=== PATIENT | female | born 1970 | race Two or more races ===

== ENCOUNTER 2022-11-13 09:03 | Outpatient (CLI) | payer OTHER | END 2022-11-13 23:59 | disposition home or self-care (01) | LOC: LAB 09:03 | PROVIDERS: ATTEND Orthopaedic Surgery | DX: Z01.818 Encounter for other preprocedural examination (principal) ==

== ENCOUNTER 2022-11-20 09:06 | Outpatient (CLI) | payer OTHER | END 2022-11-20 23:59 | disposition home or self-care (01) | LOC: LAB 09:06 | PROVIDERS: ATTEND Orthopaedic Surgery | DX: Z01.812 Encounter for preprocedural laboratory examination (principal); Z20.822 Contact with and (suspected) exposure to COVID-19 ==

== ENCOUNTER 2022-11-20 10:15 | Outpatient (CLI) | payer OTHER ==
[2022-11-20 11:02] LABS: *BILIRUBIN,URIN NEGATIVE (NEGATIVE); *BLOOD, URINE 1+ (NEGATIVE); *CLARITY,URINE CLEAR (CLEAR); *COLOR,URINE YELLOW (YELLOW); *KETONES,URINE NEGATIVE (NEGATIVE); *UROBILINOGEN,URINE 0.2 E.U./dl (NORMAL); LEUKOCYTE ESTERASE ,URINE NEGATIVE (NEGATIVE); NITRITE, URINE NEGATIVE (NEGATIVE); PH,URINE 5.5 (5.0-8.0); UGLUCOSE NEGATIVE (NEGATIVE)
[2022-11-20 11:04] LABS: HEMATOCRIT 40.8 % (31.2-41.9); MEAN CORPUSCULAR HEMOGLOBIN 29.6 uug (24.7-32.8); MEAN CORPUSCULAR VOLUME 87.7 fL (75.5-95.3); PLATELET COUNT (AUTO) 239 K/uL (179-408)
[2022-11-20 16:05] LABS: CREATININE 0.9 mg/dL (0.6-1.3); POTASSIUM 3.3 mmol/L (3.5-5.1)
[2022-11-20 16:06] LABS: BILIRUBIN,TOTAL 0.5 mg/dL (0.2-1.0); TOTAL PROTEIN, SERUM 7.9 g/dL (6.4-8.2)
[2022-11-20 17:36] LABS: BACTERIA,URINE FEW /HPF (NONE SEEN); SQUAMOUS EPITHELIAL CELL,UR FEW /HPF (NONE SEEN); WBC,URINE 0-3 /HPF (0-3)
== END 2022-11-20 23:59 | disposition home or self-care (01) ==
LOC: LAB 10:15
PROVIDERS: ATTEND Internal Medicine
DX: Z01.818 Encounter for other preprocedural examination (principal); S83.8X1A Sprain of other specified parts of right knee, initial encounter; D64.9 Anemia, unspecified; X58.XXXA Exposure to other specified factors, initial encounter; Y93.89 Activity, other specified; Y92.89 Other specified places as the place of occurrence of the external cause; Y99.8 Other external cause status
CPT/HCPCS: 36415; 71045; 85025; 85730; 93005; A4663

== ENCOUNTER 2022-11-22 08:33 | Day surgery (SDC) | payer OTHER ==
[~2022-11-22 08:33] MED LIST: BUPIVACAINE/EPI PF 0.5% 10 ML VIAL ONE
[2022-11-22] MEDS ORDERED: METOCLOPRAMIDE HCL 10 MG/2 ML VIAL IV ONE (08:34)
[2022-11-22] MEDS ORDERED: LIDOCAINE-MPF 2% 5 ML VIAL IJ ONE (08:34)
[2022-11-22] MEDS ORDERED: CEFAZOLIN 1 G VIAL IM ONE (08:34)
[2022-11-22] MEDS ORDERED: PROPOFOL 200 MG/20 ML BOTTLE IV ONE (08:34)
[2022-11-22] MEDS ORDERED: GLYCOPYRROLATE 0.2 MG/ML VIAL IJ ONE (08:34)
[2022-11-22] MEDS ORDERED: SEVOFLURANE 250 ML BOTTLE IH ONE (08:34)
[2022-11-22] MEDS ORDERED: NEOSTIGMINE METHYLSULFATE 10 MG/10 ML VIAL IM ONE (08:34)
[2022-11-22] MEDS ORDERED: ATROPINE SULFATE 1 MG/ML VIAL IM ONE (08:34)
[2022-11-22] MEDS ORDERED: ONDANSETRON 4 MG/2 ML VIAL IV ONE (08:34)
[2022-11-22] MEDS ORDERED: FENTANYL CITRATE 100 MCG/2 ML AMPUL ONE ×2 (08:37→11:21)
[2022-11-22] MEDS ORDERED: HYDROMORPHONE 2 MG/1 ML DISP.SYRIN ONE (08:38)
[2022-11-22] MEDS ORDERED: MIDAZOLAM HCL 2 MG/2 ML VIAL ONE (08:38)
[2022-11-22] MEDS ORDERED: ROCURONIUM BROMIDE 50 MG/5 ML VIAL ONE (08:38)
[2022-11-22] MEDS ORDERED: FAMOTIDINE. 20 MG/2 ML VIAL IV ONE (08:38)
[2022-11-22] MEDS ORDERED: hydrALAZINE HCL 20 MG/1 ML VIAL ONE (11:06)
[2022-11-22] MEDS ORDERED: HYDROCODONE/APAP 5-325MG TABLET ONE (12:49)
== END 2022-11-22 13:35 | disposition home or self-care (01) ==
LOC: DS 08:33
PROVIDERS: ATTEND Orthopaedic Surgery
DX: S83.281A Other tear of lateral meniscus, current injury, right knee, initial encounter (principal); M94.261 Chondromalacia, right knee; I10 Essential (primary) hypertension; F41.9 Anxiety disorder, unspecified; F32.9 Major depressive disorder, single episode, unspecified; Z87.440 Personal history of urinary (tract) infections; Z79.899 Other long term (current) drug therapy; Z98.890 Other specified postprocedural states; X58.XXXA Exposure to other specified factors, initial encounter; Y93.89 Activity, other specified; Y92.89 Other specified places as the place of occurrence of the external cause; Y99.8 Other external cause status
CPT/HCPCS: 29881; J3490 ×5; J0690; J0360; J2765; J2250; J2405; J3010 ×2; J1170; J7120; J0461